=== PATIENT | male | born 1945 | race Caucasian/White ===

== ENCOUNTER 2019-08-18 05:41 | Outpatient (CLI) | payer MEDICARE, OTHER ==
[~2019-08-18] VITALS: Ht 175.3 cm; Wt 104.5 kg
[~2019-08-18 05:41] MED LIST: AMLO10TA4 PO; AMLO5TAB2 PO; ASCO250T8 PO; HYDR-3002 PO; METO25TA4 PO; PARO10TA21 PO; VALS1TAB4 PO
[2019-08-18] MEDS ORDERED: C,E,1CAP PO (09:54)
[2019-08-18] MEDS ORDERED: GLUC-219 PO (09:54)
[2019-08-18] MEDS ORDERED: METO-387 PO (09:54)
[2019-08-18] MEDS ORDERED: PARO20TA5 PO (09:54)
[2019-08-18] MEDS ORDERED: LOSA1TAB26 PO (09:54)
[2019-08-18] MEDS ORDERED: AMLO10TA7 PO (09:54)
[2019-08-18] MEDS ORDERED: HYDR-3922 PO (09:54)
[2019-08-18] MEDS ORDERED: HYDR12.56 PO (09:54)
[2019-08-18] MEDS ORDERED: ASCO500T7 PO (09:54)
== END 2019-08-18 09:55 | disposition home or self-care (01) ==
LOC: PREOP 05:41
PROVIDERS: ATTEND Internal Medicine
DX: Z01.818 Encounter for other preprocedural examination (principal)

== ENCOUNTER 2019-08-20 07:57 | Day surgery (SDC) | payer MEDICARE, OTHER ==
--- NOTE | 2019-08-16 13:12 | HISTORY AND PHYSICAL ---
DATE OF SERVICE: 08/20/2019 COLONOSCOPY HISTORY AND PHYSICAL HISTORY OF PRESENT ILLNESS: The patient is a 74-year-old white male referred by Dr. Connolly for screening colonoscopy. He is deemed to be of higher than average risk secondary to a family history. His father was diagnosed with colon cancer around the age of 70 and succumbed to disease at the age of 71. The patient last underwent colonoscopy 5 years ago at which time he had mild diverticular disease, but no evidence for neoplasia performed by Dr. Sahu on review of his electronic medical record. He denies any bowel habit change, bright red blood per rectum, melena or abdominal pain. PAST MEDICAL HISTORY: Significant for hypertension and depression, which she feels is in remission. He has no known history of vascular disease. MEDICATIONS ON ADMISSION: Include losartan HCT 100/12.5 daily, amlodipine 10 mg daily, metoprolol ER 25 mg daily, hydralazine 10 mg daily, paroxetine 20 mg daily, standalone hydrochlorothiazide 12.5 mg daily, Osteo Bi-Flex b.i.d., vitamin C and Ocuvite. PAST SURGICAL HISTORY: Significant for cholecystectomy many years ago. FAMILY HISTORY: Most significant for father succumbing to colon cancer at age 71. Mother of motor vehicle accident in her 40s. He is not aware of any other family history for GI tract malignancy. PHYSICAL EXAMINATION: GENERAL: Reveals a well-appearing white male in no acute distress. VITAL SIGNS: Blood pressure 130/80, weight 230.8 pounds. HEENT: Unremarkable. Sclerae nonicteric. Mallampati class 2 oropharyngeal configuration. CHEST: Clear to auscultation. CARDIOVASCULAR: Reveals a regular rate and rhythm without murmur, S3 or S4. ABDOMEN: Soft, supple without mass, organomegaly or tenderness. RECTAL: Deferred at the time of the procedure. EXTREMITIES: Reveal no cyanosis, clubbing or edema. ASSESSMENT AND PLAN: The patient is set up for screening colonoscopy, deemed to be of higher than average risk due to first degree relative, his father, diagnosed with colon cancer at age 70 and succumbing to the disease at 71. He was set up for colonoscopy on 08/20/2019. Prep instructions were given and questions were answered. I thank you for the referral of this pleasant gentleman. Job ID: [id number] DocumentID: [id number] Dictated Date: 08/12/2019 15:43:16 Learning Center Coordinator Date: 08/12/2019 16:15:28 Dictated By: CRISTOPHER BELCHER MD MTDD
[2019-08-20] VITALS (10 sets, daily range): BP systolic 113–159; BP diastolic 62–80
[~2019-08-20] VITALS: Ht 172.7 cm; Wt 104.5 kg
[~2019-08-20 07:57] MED LIST changes: +AMLO10TA7 PO; +ASCO500T7 PO; +C,E,1CAP PO; +GLUC-219 PO; +HYDR-3922 PO; +HYDR12.56 PO; +LOSA1TAB26 PO; +METO-387 PO; +PARO20TA5 PO
[2019-08-20] MEDS ORDERED: D5 LR IV SOLUTION 1,000 ML IV STA (08:14)
[2019-08-20] MEDS ORDERED: fentaNYL INJECTION 100 MCG/2 ML AMP IVP ONE (08:15)
[2019-08-20] MEDS ORDERED: LIDOCAINE JELLY 2% 6 ML SYRINGE MM PRN (08:15)
[2019-08-20] MEDS ORDERED: MIDAZOLAM 5 MG/5 ML (VERSED) VIAL IV PRN (08:15)
[2019-08-20] MEDS ORDERED: D5 LR IV SOLUTION 1,000 ML IV ONE (08:19)
--- NOTE | 2019-08-20 08:34 | Pre-Op Note & Conscious Sedat ---
Pre-Operative Progress Note H&P Reviewed The H&P was reviewed, patient examined and no changes noted. Date H&P Reviewed: Aug 20, 2019 Time H&P Reviewed: 08:34 Conscious Sedation Pre-Proced ASA Score 2 For ASA 3 and 4: Consider anesthesia and medical clearance. Also, for patients with a history of failed moderate sedation consider anesthesia. Airway Lungs Heart ASA score ASA 1: a normal healthy patient ASA 2: a patient with a mild systemic disease (mid diabetes, controlled hypertension, obesity ASA 3: a patient with a severe systemic disease that limits activity (angina, COPD, prior Myocardial infarction) ASA 4: a patient with an incapacitating disease that is a constant threat to life (CHF, renal failure) ASA 5: a moribund patient not expected to survive 24 hrs. (ruptured aneurysm) ASA 6: a declared brain- patient whose organs are being harvested. For emergent operations, add the letter E after the classification Mallampati Classification Grade 2 Sedation Plan Analgesia, Amnesia, Plan communicated to team members, Discussed options with patient/fam, Discussed risks with patient/fam The patient is an appropriate candidate to undergo the planned procedure, sedation, and anesthesia. The patient immediately re-assessed prior to indication. CRISTOPHER BELCHER MD Aug 20, 2019 08:34 POS
[2019-08-20] MEDS ORDERED: ASCO1TAB12 PO (08:45)
[2019-08-20] MEDS ORDERED: LIDOCAINE JELLY 2% 6 ML SYRINGE ONE (09:02)
[2019-08-20] MEDS ORDERED: MIDAZOLAM 5 MG/5 ML (VERSED) VIAL ONE (09:02)
[2019-08-20] MEDS ORDERED: fentaNYL INJECTION 100 MCG/2 ML AMP ONE (09:02)
--- NOTE | 2019-08-20 18:27 | OPERATIVE REPORT ---
DATE OF SERVICE: 08/20/2019 COLONOSCOPY SUMMARY INDICATION FOR THE PROCEDURE: Screening colonoscopy with family history for colon cancer. DESCRIPTION OF PROCEDURE: The patient was placed in the left lateral decubitus position. Prior to undergoing colonoscopy, digital rectal evaluation was performed. Anal sphincter tone was normal and the perianal reflexes intact. Prostate is mildly enlarged, anodular and nontender to digital inspection. No abnormalities, no digital inspection of the anal canal or distal rectal vault. The colonoscope was then inserted into the rectum and under direct visualization advanced to cecum. The cecum was identified by identification of ileocecal valve, cecal strap and appendiceal orifice. Quality of prep was good. The patient tolerated the procedure well. FINDINGS: There was no evidence for internal or external hemorrhoids and the rectum was unremarkable. A moderate number of sigmoid diverticulum was present with haustral hypertrophy, but no evidence for diverticulitis. No other sigmoid colonic abnormalities were appreciated. Present in the proximal descending colon was an 8 mm polyp on a very short stalk. It was biopsied and ablated and submitted for histopathology with no subsequent blood loss. The splenic flexure was unremarkable. Present in the proximal transverse colon was a diminutive 3 mm sessile polyp was biopsied and ablated and submitted for histopathology. The hepatic flexure, ascending colon and cecum were unremarkable. ASSESSMENT: Two polyps were removed, the largest one measuring 8 mm on a short stalk present in the proximal descending colon. As long as there are no surprises on histopathology report, we will likely be advocating a 3-year surveillance colonoscopy interval. The patient also had moderate diverticular disease confined to the sigmoid colon without evidence for diverticulitis. The prostate was mildly enlarged, anodular and nontender to digital inspection. Job ID: [id number] DocumentID: [id number] Dictated Date: 08/20/2019 10:39:17 Sampler Pickup Date: 08/20/2019 18:26:02 Dictated By: CRISTOPHER BELCHER MD
== END 2019-08-20 10:33 | disposition home or self-care (01) ==
LOC: ENDO 07:57
PROVIDERS: ATTEND Internal Medicine
DX: Z12.11 Encounter for screening for malignant neoplasm of colon (principal); Z80.0 Family history of malignant neoplasm of digestive organs; D12.3 Benign neoplasm of transverse colon; K51.40 Inflammatory polyps of colon without complications; K57.30 Diverticulosis of large intestine without perforation or abscess without bleeding; N40.0 Benign prostatic hyperplasia without lower urinary tract symptoms; I10 Essential (primary) hypertension; F32.9 Major depressive disorder, single episode, unspecified; Z79.899 Other long term (current) drug therapy
CPT/HCPCS: 88305

== ENCOUNTER → 2021-07-23 | Outpatient (CLI) | payer MEDICARE, OTHER ==
[~2021-07-23] MED LIST changes: +AMLO-251 PO; -AMLO10TA7 PO; +ASCO1TAB12 PO; -METO-387 PO; +MTP25TSR PO
[2021-07-23 10:46] LABS: ABSOLUTE RETIC # 80 10e9/uL (24-90); BASOPHILS % (AUTO) 1 % (0-10); EOSINOPHILS # (AUTO) 0.1 10^3/uL (0.0-0.3); EOSINOPHILS % (AUTO) 1 % (0-10); HEMATOCRIT 42 % (40-54); LYMPHOCYTES # (AUTO) 1.3 10^3/uL (1.0-4.0); LYMPHOCYTES % (AUTO) 27 % (12-44); MEAN CORPUSCULAR HEMOGLOBIN 32 pg (25-34); MEAN CORPUSCULAR HGB CONC 36 g/dL (32-36); MEAN CORPUSCULAR VOLUME 91 fL (80-99); MEAN PLATELET VOLUME 11.3 fL (9.0-12.2); MONOCYTES # (AUTO) 0.6 10^3/uL (0.0-1.0); MONOCYTES % (AUTO) 11 % (0-12); NEUTROPHILS % (AUTO) 60 % (42-75); PLATELET COUNT 126 10^3/uL (130-400); RETICULOCYTE % 1.72 % (0.50-2.40)
[2021-07-23 11:11] LABS: BAND NEUTROPHILS 0 %; BASOPHILS % (MANUAL) 1 %; EOSINOPHILS % (MANUAL) 3 %; LYMPHOCYTES % (MANUAL) 29 %; MONOCYTES % (MANUAL) 8 %; NEUTROPHILS % (MANUAL) 59 %; RBC MORPH NORMAL
== END ==
LOC: CARD 10:24
PROVIDERS: ATTEND Nurse Practitioner Family
DX: I49.9 Cardiac arrhythmia, unspecified (principal); D69.6 Thrombocytopenia, unspecified
CPT/HCPCS: 36415; 85007; 85027; 85045; 85055; 93005

== ENCOUNTER → 2021-07-25 | Outpatient (CLI) | payer MEDICARE, OTHER | LOC: CARD 08:00 | PROVIDERS: ATTEND Internal Medicine | DX: I49.9 Cardiac arrhythmia, unspecified (principal) | CPT/HCPCS: 93225; 93226 ==

== ENCOUNTER 2021-09-14 08:58 | Outpatient (RCR) | payer MEDICARE, OTHER ==
[2021-09-14 09:32] LABS: BASOPHILS # (AUTO) 0.1 10^3/uL (0.0-0.1); BASOPHILS % (AUTO) 1 % (0-10); MEAN CORPUSCULAR VOLUME 92 fL (80-99)
[2021-09-14 09:33] LABS: EOSINOPHILS # (AUTO) 0.1 10^3/uL (0.0-0.3); EOSINOPHILS % (AUTO) 2 % (0-10); HEMATOCRIT 42 % (40-54); HEMOGLOBIN 14.6 g/dL (13.3-17.7); LYMPHOCYTES # (AUTO) 1.5 10^3/uL (1.0-4.0); LYMPHOCYTES % (AUTO) 31 % (12-44); MEAN CORPUSCULAR HEMOGLOBIN 32 pg (25-34); MEAN CORPUSCULAR HGB CONC 34 g/dL (32-36); MEAN PLATELET VOLUME 11.4 fL (9.0-12.2); MONOCYTES # (AUTO) 0.7 10^3/uL (0.0-1.0); MONOCYTES % (AUTO) 14 % (0-12); NEUTROPHILS # (AUTO) 2.6 10^3/uL (1.8-7.8); NEUTROPHILS % (AUTO) 52 % (42-75); PLATELET COUNT 133 10^3/uL (130-400); WHITE BLOOD COUNT 4.9 10^3/uL (4.3-11.0)
[2021-09-14 10:00] LABS: ALBUMIN 4.4 GM/DL (3.2-4.5); BILIRUBIN,TOTAL 1.1 MG/DL (0.1-1.0); CALCIUM 9.4 MG/DL (8.5-10.1); CREATININE SERUM 1.24 MG/DL (0.60-1.30); POTASSIUM 3.9 MMOL/L (3.6-5.0); TOTAL PROTEIN 6.8 GM/DL (6.4-8.2)
[2021-09-14 22:18] LABS: HEPATITIS C ANTIBODY C Non-Reactive (Non-Reactive)
== END 2021-10-12 | disposition home or self-care (01) ==
LOC: ONC 08:58
PROVIDERS: ATTEND Internal Medicine Hematology & Oncology
DX: D69.6 Thrombocytopenia, unspecified (principal); Z79.899 Other long term (current) drug therapy
CPT/HCPCS: 80053; 80074; 83615; 85025; G0463; 99213

== ENCOUNTER 2021-10-15 10:20 | Outpatient (RCR) | payer MEDICARE, OTHER ==
[2021-10-15 10:30] LABS: BASOPHILS # (AUTO) 0.1 10^3/uL (0.0-0.1); BASOPHILS % (AUTO) 1 % (0-10); EOSINOPHILS # (AUTO) 0.1 10^3/uL (0.0-0.3); EOSINOPHILS % (AUTO) 2 % (0-10); HEMATOCRIT 44 % (40-54); HEMOGLOBIN 15.3 g/dL (13.3-17.7); LYMPHOCYTES # (AUTO) 1.5 10^3/uL (1.0-4.0); LYMPHOCYTES % (AUTO) 30 % (12-44); MEAN CORPUSCULAR HEMOGLOBIN 32 pg (25-34); MEAN CORPUSCULAR HGB CONC 35 g/dL (32-36); MEAN CORPUSCULAR VOLUME 92 fL (80-99); MEAN PLATELET VOLUME 10.9 fL (9.0-12.2); MONOCYTES # (AUTO) 0.6 10^3/uL (0.0-1.0); MONOCYTES % (AUTO) 11 % (0-12); NEUTROPHILS # (AUTO) 2.8 10^3/uL (1.8-7.8); NEUTROPHILS % (AUTO) 56 % (42-75); PLATELET COUNT 142 10^3/uL (130-400)
[2021-10-15 10:51] LABS: ALBUMIN 4.4 GM/DL (3.2-4.5); BILIRUBIN,TOTAL 1.1 MG/DL (0.1-1.0); CALCIUM 9.2 MG/DL (8.5-10.1); CREATININE SERUM 1.12 MG/DL (0.60-1.30); TOTAL PROTEIN 7.1 GM/DL (6.4-8.2)
== END 2021-11-12 | disposition home or self-care (01) ==
LOC: ONC 10:20
PROVIDERS: ATTEND Internal Medicine Hematology & Oncology
DX: D69.6 Thrombocytopenia, unspecified (principal)
CPT/HCPCS: 80053; 85025; G0463; 99213

== ENCOUNTER 2022-09-19 05:40 | Outpatient (CLI) | payer MEDICARE, OTHER ==
[~2022-09-19] VITALS: Ht 180.3 cm; Wt 105.7 kg
== END 2022-09-19 09:05 | disposition home or self-care (01) ==
LOC: PREOP 05:40
PROVIDERS: ATTEND Internal Medicine
DX: Z01.818 Encounter for other preprocedural examination (principal)

== ENCOUNTER 2022-09-27 06:52 | Day surgery (SDC) | payer MEDICARE, OTHER ==
--- NOTE | 2022-09-18 05:49 | HISTORY AND PHYSICAL ---
COLONOSCOPY HISTORY AND PHYSICAL HISTORY OF PRESENT ILLNESS: The patient is a 77-year-old white male who is undergoing diagnostic colonoscopy due to past history of colon polyps and a family history of colon cancer of the index case his father diagnosed at age of 71. He last underwent colonoscopy a little over 3 years ago, at which time he had a tubular adenoma removed from the proximal transverse colon and inflammatory polyp removed from the proximal descending colon. The patient denies bowel habit change, abdominal pain, bright red blood per rectum, melena or change in weight. PAST MEDICAL HISTORY: Significant for hypertension and depression, which he feels is in remission with no known history of vascular disease. PAST SURGICAL HISTORY: He had a cholecystectomy many years ago. No interval change since I last saw him a little over 3 years ago. FAMILY HISTORY: As noted in the HPI. PHYSICAL EXAMINATION: GENERAL: Reveals a well-appearing white male in no acute distress. VITAL SIGNS: Blood pressure 120/72, weight 233 pounds, stable from 3 years ago. HEENT: Unremarkable. Sclerae nonicteric. CHEST: Clear to auscultation. CARDIOVASCULAR: Reveals a regular rate and rhythm without significant murmur, S3 or S4. ABDOMEN: Soft, supple without mass, organomegaly, or tenderness. EXTREMITIES: No cyanosis, clubbing or edema. ASSESSMENT AND PLAN: The patient is being set up for surveillance colonoscopy due to past history of colon polyps and family history of colon cancer of the index case being his father diagnosed at age 71. Prep instructions were given, electronic medical record was reviewed and questions were answered. Thank you for the referral of emory mariscal. Job ID: [id number] DocumentID: [id number] Dictated Date: 08/22/2022 17:16:16 Health Informatics Specialist Date: 08/22/2022 17:29:00 Dictated By: CRISTOPHER BELCHER MD
[~2022-09-27] VITALS: Ht 180.3 cm; Wt 105.7 kg
[2022-09-27] MEDS ORDERED: LACTATED RINGERS 1,000 ML IV STA (07:15)
[2022-09-27 07:30] VITALS: BP 147/78
--- NOTE | 2022-09-27 08:00 | Pre-Op Note & Conscious Sedat ---
Pre-Operative Progress Note Date H&P Reviewed: Sep 27, 2022 Time H&P Reviewed: 07:50 History & Physical: H&P Reviewed, Patient Examed, No changes noted Pre-Op Diagnosis: hx of colon polyps Conscious Sedation Pre-Proced ASA Score 2 For ASA 3 and 4: Consider anesthesia and medical clearance. Also, for patients with a history of failed moderate sedation consider anesthesia. Airway Lungs Heart ASA score ASA 1: a normal healthy patient ASA 2: a patient with a mild systemic disease (mid diabetes, controlled hypertension, obesity ASA 3: a patient with a severe systemic disease that limits activity (angina, COPD, prior Myocardial infarction) ASA 4: a patient with an incapacitating disease that is a constant threat to life (CHF, renal failure) ASA 5: a moribund patient not expected to survive 24 hrs. (ruptured aneurysm) ASA 6: a declared brain- patient whose organs are being harvested. For emergent operations, add the letter E after the classification Mallampati Classification Grade 2 Sedation Plan Analgesia, Amnesia, Plan communicated to team members, Discussed options with patient/fam, Discussed risks with patient/fam The patient is an appropriate candidate to undergo the planned procedure, sedation, and anesthesia. The patient immediately re-assessed prior to indication. CRISTOPHER BELCHER MD Sep 27, 2022 08:00
[2022-09-27] MEDS ORDERED: PROPOFOL INJECTION 50 ML IV ONE (08:01)
[2022-09-27 08:30] VITALS: BP 86/54
--- NOTE | 2022-09-27 08:32 | Progress Note-Post Operative ---
Post-Procedure Note Physician (s)/Coding Advisor (s) Physician CRISTOPHER BELCHER MD Pre-Procedure Diagnosis Pre-Procedure Diagnosis: hx of colon polyps Post-Procedure Diagnosis Post-operative diagnosis: Prior to undergoing colonoscopy digital rectal evaluation was performed. Anal sphincter tone was normal and the perianal reflexes intact. Prostate is mild to moderately enlarged and a nodular on digital inspection. No other abnormalities noted on digital inspection of the anal canal or distal rectal vault. The colonoscope was then inserted into the rectum and under direct visualization advanced to the cecum. The cecum was identified by identification of the ileocecal valve and the cecal strap. Photographic documentation was obtained. Quality the prep was fair there was a thin amount of semisolid stool throughout the colon with no significant solid stool. Findings: There was no evidence for internal or external hemorrhoids. The rectum was unremarkable. Mild to moderate diverticular disease confined to the sigmoid colon was present without evidence for diverticulitis. No other sigmoid colonic abnormalities were appreciated. The descending colon splenic flexure and transverse colon were unremarkable. There were 2 adjacent polyps in the [place] flexure 1 questionable sessile 6 x 8 mm in size the other 2 x 3 mm in size both were biopsied and ablated with the hot forceps and submitted for histopathology. The remainder of the ascending colon and cecum were unremarkable. A/P 1. 2 sessile polyps were removed via hot forceps today adjacent located at the level of the hepatic flexure. Mild to moderate diverticular disease confined to the sigmoid colon was present and digital evaluation of the prostate was compatible with mild to moderate BPH. As long as there are no surprises on histopathology report considering family history we will advocate repeat surveillance colonoscopy in 5 years. CC: CRISTOPHER Roman MD, MD Sep 27, 2022 08:32
[2022-09-27 08:35] VITALS: BP 94/56
[2022-09-27 08:50] VITALS: BP 110/79
--- NOTE | 2022-09-27 09:57 | Anesthesia-General Post-Op ---
MAC Patient Condition Mental Status/LOC: Same as Preop Cardiovascular: Satisfactory Nausea/Vomiting: Absent Respiratory: Satisfactory Pain: Controlled Complications: Absent Post Op Complications Complications None Follow Up Care/Instructions Patient Instructions None needed. Anesthesiology Discharge Order Discharge Order Patient is doing well, no complaints, stable vital signs, no apparent adverse anesthesia problems. No complications reported per nursing. YOU DIETZ CRNA Sep 27, 2022 09:57
== END 2022-09-27 09:02 | disposition home or self-care (01) ==
LOC: ENDO 06:52
PROVIDERS: ATTEND Internal Medicine
DX: Z12.11 Encounter for screening for malignant neoplasm of colon (principal); K63.5 Polyp of colon; N40.0 Benign prostatic hyperplasia without lower urinary tract symptoms; K57.30 Diverticulosis of large intestine without perforation or abscess without bleeding; Z80.0 Family history of malignant neoplasm of digestive organs
CPT/HCPCS: 88305